=== PATIENT | male | born 1995 | race Caucasian/White ===

== ENCOUNTER 2018-06-13 20:12 | Emergency (ER) | payer BC ==
[2018-06-13] MEDS ORDERED: KETOROLAC 30 MG/ML 1 ML VIAL IVP STA (21:00)
--- NOTE | 2018-06-13 21:17 | ED ---
Abdominal Pain HPI - General Chief Complaint: Abdominal Pain Stated Complaint: Abd pain Time Seen by Provider: 06/13/18 20:36 Source: patient Mode of arrival: ambulatory Limitations: no limitations - History of Present Illness Initial Comments: 22-year-old male presenting today for chief complaint of testicular pain 2 days. Patient states that he was doing work on his car, he woke up Friday with bilateral testicular pain with the left being greater than the right he also noted some testicular swelling. He states that it is 8/10 and increases with movement. He denies fever chills or night sweats, vomiting. Patient does admit to occasional nausea. Patient denies any abdominal pain, vomiting, diarrhea, urgency, frequency, dysuria, color changes of the testicles , back pain, chest pain, shortness of breath. Patient denies taking anything for pain. Remainder ROS negative. Patient denies any history of hernias or abdominal surgeries. - Related Data Home Medications Medication Instructions Recorded Confirmed Dextroamphetamine/Amphetamine 25 mg PO QAM 03/23/14 02/08/15 [Adderall Xr] Previous Rx's Medication Instructions Recorded Doxycycline [Vibramycin] 100 mg PO Q12HR 10 Days #40 capsule 06/13/18 Ibuprofen [Motrin] 800 mg PO Q6H PRN 7 Days #28 tab 06/13/18 Allergies Allergy/AdvReac Type Severity Reaction Status Date / Time Penicillins AdvReac Unknown Verified 06/13/18 21:21 Review of Systems ROS Statement: Those systems with pertinent positive or pertinent negative responses have been documented in the HPI. ROS Other: All systems not noted in ROS Statement are negative. Constitutional: Denies: fever, chills, night sweats ENT: Denies: ear pain, throat pain Respiratory: Denies: cough, dyspnea, wheezes, hemoptysis, stridor Cardiovascular: Denies: chest pain, palpitations Gastrointestinal: Reports: nausea. Denies: abdominal pain, vomiting, diarrhea, constipation, hematemesis, melena, hematochezia Genitourinary: Reports: as per HPI, testicular pain. Denies: urgency, dysuria, frequency, hematuria, discharge, testicular mass Musculoskeletal: Denies: back pain Skin: Denies: rash, lesions Neurological: Denies: headache, weakness, numbness, paresthesias, confusion Past Medical History Past Medical History: No Reported History History of Any Multi-Drug Resistant Organisms: None Reported Past Surgical History: Adenoidectomy, Tonsillectomy Past Psychological History: No Psychological Hx Reported Smoking Status: Current every day smoker Past Alcohol Use History: Occasional Past Drug Use History: None Reported General Exam - General Exam Comments Initial Comments: General: The patient is awake and alert, in no distress, and does not appear acutely ill. Eye: Pupils are equal, round and reactive to light, extra-ocular movements are intact. No nystagmus. There is normal conjunctiva bilaterally. No signs of icterus. Ears, nose, mouth and throat: There are moist mucous membranes and no oral lesions. Neck: The neck is supple, there is no tenderness or JVD. Cardiovascular: There is a regular rate and rhythm. No murmur, rub or gallop is appreciated. Respiratory: Lungs are clear to auscultation, respirations are non-labored, breath sounds are equal. No wheezes, stridor, rales, or rhonchi. Gastrointestinal: Soft, non-distended, non-tender abdomen without masses or organomegaly noted. There is no rebound or guarding present. No CVA tenderness. Bowel sounds are unremarkable. Musculoskeletal: Normal ROM, no tenderness. Strength 5/5. Sensation intact. Pulses equal bilaterally 2+. Neurological: A&O x 3. CN II-XII intact, There are no obvious motor or sensory deficits. Coordination appears grossly intact. Speech is normal. Skin: Skin is warm and dry and no rashes or lesions are noted. Psychiatric: Cooperative, appropriate mood & affect, normal judgment. Limitations: no limitations exam: Present: normal inspection (Normal lie, no palable direct/indirect inguinal hernia b/l, no palpable inguinal lymphadenopathy, no masses palpable of scrotum), testicular tenderness (left sided-posterior, no noted right sided tenderness to palpation), scrotal swelling (Pt states that there is enlargement no obvious swelling of scotum), vertical testicular lie, circumcision. Absent: urethral discharge Expanded Male exam: Absent: phimosis, paraphimosis, penile swelling, lesions, perineal induration, balanitis, priapism exam: Testicular Tenderness: Left (pain to palpation of epidymis), Testicular Swelling: Left, Right, Epididymal Tenderness: Right, Cremasteric Reflex Present: Left, Right Course Vital Signs 06/13/18 06/13/18 20:17 23:01 Temperature 98.3 F 98.5 F Pulse Rate 87 64 Respiratory 18 16 Rate Blood Pressure 134/82 156/68 O2 Sat by Pulse 98 98 Oximetry Medical Decision Making - Medical Decision Making Low clinical suspicion of torsion given timing of onset to presentation and pt overall appearance, US of testicles with doppler still ordered to r/o torsion/ mass/hydrocele. no evidence of varicocele on exam or U/S. There was a cystic mass on the right testes however pt denied pain to palpation of this area. There was left sided epididymis pain. No palpable inguinal hernia on physical exam. Given epididymis pain on exam i am suspicious of epididymitis pt given 250mg ceftriaxone, pt states he hasnt had penicillin since he was younger and was unsure of the reaction. Pt understood the risk of cross-reaction with ceftriaxone and we decided after discussion to administer the ceftriaxone and he will monitor for reaction. In addition pt given 100mg doxycyclin x10 days. Pt abdominal exam benign, denied pain to deep palpation. Pt instructed to return to the ER for any worsening symptoms. UA and urine gonococcal and chalymdia testing obtained. UA unremarkable. After discussing case with Dr. Blandon we feel pt has epididymitis and will be discharged with urology f/u. Pt agreed with plan d/c in stable condition. - Lab Data Result diagrams: 06/13/18 21:17 06/13/18 21:17 Lab Results 06/13/18 06/13/18 06/13/18 Range/Units 21:17 21:17 21:22 WBC 8.3 (3.8-10.6) k/uL RBC 5.01 (4.30-5.90) m/uL Hgb 12.2 L (13.0-17.5) gm/dL Hct 39.7 (39.0-53.0) % MCV 79.2 L (80.0-100.0) fL MCH 24.3 L (25.0-35.0) pg MCHC 30.7 L (31.0-37.0) g/dL RDW 15.3 (11.5-15.5) % Plt Count 324 (150-450) k/uL Neutrophils % 57 % Lymphocytes % 31 % Monocytes % 7 % Eosinophils % 2 % Basophils % 1 % Neutrophils # 4.7 (1.3-7.7) k/uL Lymphocytes # 2.5 (1.0-4.8) k/uL Monocytes # 0.6 (0-1.0) k/uL Eosinophils # 0.2 (0-0.7) k/uL Basophils # 0.0 (0-0.2) k/uL Hypochromasia Slight Sodium 142 (137-145) mmol/L Potassium 4.0 (3.5-5.1) mmol/L Chloride 106 (98-107) mmol/L Carbon Dioxide 29 (22-30) mmol/L Anion Gap 7 mmol/L BUN 11 (9-20) mg/dL Creatinine 0.89 (0.66-1.25) mg/dL Est GFR (CKD-EPI)AfAm >90 (>60 ml/min/1.73 sqM) Est GFR (CKD-EPI)NonAf >90 (>60 ml/min/1.73 sqM) Glucose 102 H (74-99) mg/dL Calcium 9.5 (8.4-10.2) mg/dL Total Bilirubin 0.4 (0.2-1.3) mg/dL AST 36 (17-59) U/L ALT 45 (21-72) U/L Alkaline Phosphatase 74 (38-126) U/L Total Protein 6.7 (6.3-8.2) g/dL Albumin 4.1 (3.5-5.0) g/dL Urine Color Yellow Urine Appearance Clear (Clear) Urine pH 5.5 (5.0-8.0) Ur Specific [place] 1.023 (1.001-1.035) Urine Protein Trace H (Negative) Urine Glucose (UA) Negative (Negative) Urine Ketones Negative (Negative) Urine Blood Negative (Negative) Urine Nitrite Negative (Negative) Urine Bilirubin Negative (Negative) Urine Urobilinogen <2.0 (<2.0) mg/dL Ur Leukocyte Esterase Negative (Negative) Disposition Clinical Impression: Testicular pain, right, Testicular swelling, Epididymitis Disposition: HOME SELF-CARE Condition: Good Instructions: Testicular Self-examination (ED), Testicle Pain (ED) Additional Instructions: Please use medication as discussed. Ice, elevate testicles as discussed. Please follow-up with urology in the next 2-3 days and primary care physician in the next 1-2 days. Please return to emergency room if the symptoms increase or worsen or for any other concerns, as discussed. Prescriptions: Doxycycline [Vibramycin] 100 mg PO Q12HR 10 Days #40 capsule Ibuprofen [Motrin] 800 mg PO Q6H PRN 7 Days #28 tab PRN Reason: Pain Is patient prescribed a controlled substance at d/c from ED?: No Referrals: Bo Najera MD [Primary Care Provider] - 1-2 days Time of Disposition: 23:02
[2018-06-13 21:28] LABS: Basophils % (A) 1 %; Eosinophils # (A) 0.2 k/uL (0-0.7); Eosinophils % (A) 2 %; HCT 39.7 % (39.0-53.0); HGB 12.2 gm/dL (13.0-17.5); Hypochromasia Slight; Lymphocytes # (A) 2.5 k/uL (1.0-4.8); Lymphocytes % (A) 31 %; MCH 24.3 pg (25.0-35.0); MCHC 30.7 g/dL (31.0-37.0); MCV 79.2 fL (80.0-100.0); Mean Platelet Volume 6.5; Monocytes # (A) 0.6 k/uL (0-1.0); Monocytes % (A) 7 %; Neutrophils # (A) 4.7 k/uL (1.3-7.7); Neutrophils % (A) 57 %; Platelet Count 324 k/uL (150-450); RBC 5.01 m/uL (4.30-5.90); RDW 15.3 % (11.5-15.5); WBC 8.3 k/uL (3.8-10.6)
[2018-06-13 21:36] LABS: ALT 45 U/L (21-72); AST 36 U/L (17-59); Albumin 4.1 g/dL (3.5-5.0); Alkaline Phosphatase 74 U/L (38-126); Anion Gap 7 mmol/L; Blood Urea Nitrogen 11 mg/dL (9-20); Calcium 9.5 mg/dL (8.4-10.2); Carbon Dioxide 29 mmol/L (22-30); Chloride 106 mmol/L (98-107); Glucose 102 mg/dL (74-99); Sodium 142 mmol/L (137-145); Total Bilirubin 0.4 mg/dL (0.2-1.3); Total Protein 6.7 g/dL (6.3-8.2)
[2018-06-13 21:42] LABS: Appearance,Urine Clear (Clear); Bilirubin,Urine Negative (Negative); Blood,Urine Negative (Negative); Color,Urine Yellow; Glucose,Urine (UA) Negative (Negative); Ketones,Urine Negative (Negative); Leukocyte Esterase,Urine Negative (Negative); Nitrite,Urine Negative (Negative); PH, Urine 5.5 (5.0-8.0); Protein,Urine Trace (Negative); Specific Gravity,Urine 1.023 (1.001-1.035); Urobilinogen,Urine <2.0 mg/dL (<2.0)
--- NOTE | 2018-06-13 22:34 | US ---
EXAMINATION TYPE: US scrotum with doppler. Grayscale and color Doppler Duplex imaging performed of t he scrotum. DATE OF EXAM: 06/13/2018 COMPARISON: NONE CLINICAL HISTORY: r/o torsion. EXAM MEASUREMENTS: TESTICLES: Right Testicle: 4.6 x 2.0 x 3.2 cm Left Testicle: 4.9 x 2.4 x 3.2 cm EPIDIDYMIS HEAD: Right Epididymis: 0.8 x 1.2 x 1.1 cm Left Epididymis: 1.2 x 1.0 x 1.2 cm Doppler performed to assess for testicular vascularity; good bilateral color flow and waveforms are s een. There is no evidence of testicular torsion. Presence of hydroceles: No Presence of varicoceles: No Cystic area noted in the right epididymis measuring approximately 0.4 x 0.3 x 0.5 cm. Vessels appear prominent, but within normal limits. IMPRESSION: Small epididymal cyst on the right side. No evidence of testicular torsion or mass.
[2018-06-13] MEDS ORDERED: DOXYCYCLINE 50 MG CAP PO STA (22:53)
[2018-06-13] MEDS ORDERED: cefTRIAXone 250 MG VIAL IM STA (22:53)
[2018-06-13 23:03] VITALS: BP 156/68; PULSE 64; RESP 16; TEMP 98.5
[2018-06-14 14:43] LABS: C. trachomatis,PCR Negative (Neg,Equiv); Chlamydia trachomatis Source Urine; N. gonorrhoeae,PCR Negative (Neg,Equiv); Neisseria Source Urine
== END 2018-06-13 23:14 | disposition home or self-care (01) ==
LOC: EC 20:12
DX: N50.811 Right testicular pain (principal); N50.89 Other specified disorders of the male genital organs; N45.1 Epididymitis; F17.200 Nicotine dependence, unspecified, uncomplicated; Z79.899 Other long term (current) drug therapy; Z88.0 Allergy status to penicillin
CPT/HCPCS: 36415; 80053; 85025; 81003; 87491; 87591; 93975; 76870; 99284; 96374; 96372; J0696; J1885